=== PATIENT | male | born 1990 | race Two or more races ===

== ENCOUNTER 2017-01-20 07:43 | Emergency (ER) | payer BC ==
[~2017-01-20] VITALS: Ht 182.9 cm; Wt 77.1 kg
--- NOTE | 2017-01-20 07:43 | NUR ---
NAUSEA, VOMITING, GENERALIZED BODY PAIN. STARTED AUGMENTIN X 2 DAYS. NAD NOTED. AMBULATORY WITH STEADY GAIT. RR EVEN AND UNLABORED. VSS.
[2017-01-20] MEDS ORDERED: METOCLOPRAMIDE HCL 10 MG/2 ML VIAL IV ONE (08:00)
[2017-01-20] MEDS ORDERED: LORAZEPAM INJ 2 MG/ML VIAL IV ONE ×2 (08:00→09:30)
[2017-01-20] MEDS ORDERED: IV NS 0.9% 1,000 ML BAG IV ONE (08:00)
[2017-01-20] MEDS ORDERED: METOCLOPRAMIDE HCL 10 MG/2 ML VIAL ONE (08:03)
[2017-01-20] MEDS ORDERED: LORAZEPAM INJ 2 MG/ML VIAL ONE ×2 (08:03→09:08)
[2017-01-20 08:13] LABS: BASOPHILS % (AUTO) 0.1 % (0.0-2.0); HEMATOCRIT 45 % (39-51); HEMOGLOBIN 14.7 g/dL (13.5-17.5); LYMPHOCYTES # (AUTO) 0.7 /CMM (0.8-4.8); LYMPHOCYTES % (AUTO) 4.3 % (20.0-44.0); MEAN CORPUSCULAR HEMOGLOBIN 26 PG (26.0-33.0); MEAN CORPUSCULAR HGB CONC 33 g/dl (31.0-36.0); MEAN CORPUSCULAR VOLUME 78 fL (80-96); MONOCYTES # (AUTO) 1.6 /CMM (0.1-1.30); MONOCYTES % (AUTO) 9.5 % (2.0-12.0); NEUTROPHILS # (AUTO) 14.1 /CMM (1.8-8.9); NEUTROPHILS % (AUTO) 86.1 % (43.0-81.0); PLATELET COUNT (AUTO) 170 /CMM (150-450); RDW COEFFICIENT OF VARIATION 15.7 (11.5-15.0); RED BLOOD CELL COUNT(AUTO) 5.73 MIL/uL (4.5-6.0); WHITE BLOOD COUNT (AUTO) 16.4 K/uL (4.3-11.0)
[2017-01-20 08:38] LABS: CALCIUM, SERUM 8.9 mg/dL (8.5-10.1); CREATININE 1.1 mg/dL (0.6-1.3); POTASSIUM 3.7 mmol/L (3.5-5.1)
[2017-01-20 08:43] LABS: ALBUMIN 3.6 g/dL (3.4-5.0); BILIRUBIN,DIRECT 0.1 mg/dL (0.0-0.2); BILIRUBIN,TOTAL 0.5 mg/dL (0.2-1.0); TOTAL PROTEIN, SERUM 7.7 g/dL (6.4-8.2)
[2017-01-20] MEDS ORDERED: ONDANSETRON HCL/PF 4 MG/2 ML VIAL ONE (08:44)
[2017-01-20] MEDS ORDERED: ONDANSETRON HCL/PF 4 MG/2 ML VIAL IV ONE (09:00)
[2017-01-20] MEDS ORDERED: PENICILLIN G BENZATHINE 2.4 MMU/4 ML ML IM ONE ×2 (09:44→10:00)
[2017-01-20] MEDS ORDERED: LIDOCAINE /MPF 1% VIAL 5 ML VIAL ONE (09:44)
[2017-01-20 10:11] VITALS: BP 130/69
--- NOTE | 2017-01-20 10:12 | NUR ---
Patient discharged to home in stable condition. Written and verbal after care instructions given. Patient verbalizes understanding of instruction. IV removed. Catheter intact and site benign. Pressure and 4x4 applied to site. No bleeding noted. ambulatory with steady gait. rr even and unlabored. no further complaints.
== END 2017-01-20 10:12 | disposition home or self-care (01) ==
LOC: ER 07:45
DX: G43.A0 Cyclical vomiting, in migraine, not intractable (principal); J02.0 Streptococcal pharyngitis
CPT/HCPCS: 36415; 80048; 80076; 83690; 85025; 96361; 96372; 96374; 96375; 99284; A4606; J0558; J2060 ×2; J2405; J2765; J3490; J7030 ×2; Z7610

== ENCOUNTER 2017-01-20 17:37 | Emergency (ER) | payer BC ==
[~2017-01-20] VITALS: Ht 182.9 cm; Wt 77.1 kg
--- NOTE | 2017-01-20 17:45 | NUR ---
WAS SEEN IN ED TODAY. BACK FOR ANXIETY, NOT FEELING WELL. AWAITNG MD ORDER
[2017-01-20] MEDS ORDERED: KETOROLAC TROMETHAMINE INJ 30 MG/ML VIAL IV ONE (19:00)
[2017-01-20] MEDS ORDERED: IV NS 0.9% 1,000 ML BAG IV ONE (19:00)
[2017-01-20] MEDS ORDERED: METOCLOPRAMIDE HCL 10 MG/2 ML VIAL IV ONE (19:00)
[2017-01-20] MEDS ORDERED: diphenhydrAMINE HCL 50 MG/ML VIAL IV ONE (19:00)
[2017-01-20] MEDS ORDERED: diphenhydrAMINE HCL 50 MG/ML VIAL ONE (19:05)
[2017-01-20] MEDS ORDERED: METOCLOPRAMIDE HCL 10 MG/2 ML VIAL ONE (19:06)
[2017-01-20] MEDS ORDERED: KETOROLAC TROMETHAMINE INJ 30 MG/ML VIAL ONE (19:06)
--- NOTE | 2017-01-20 19:53 | NUR ---
Patient discharged to home in stable condition. Written and verbal after care instructions given. Patient verbalizes understanding of instruction.
--- NOTE | 2017-01-20 19:53 | NUR ---
IV removed. Catheter intact and site benign. Pressure and 4x4 applied to site. No bleeding noted.
[2017-01-20 19:54] VITALS: BP 130/76
== END 2017-01-20 19:55 | disposition home or self-care (01) ==
LOC: ER 17:40
DX: G43.A0 Cyclical vomiting, in migraine, not intractable (principal); F12.90 Cannabis use, unspecified, uncomplicated
CPT/HCPCS: A4606; J1200; J1885; J2765; J7030; Z7610